=== PATIENT | male | born 1990 | race Caucasian/White ===

== ENCOUNTER → 2025-03-20 | Outpatient (CLI) | payer MEDICAID, SELFPAY ==
--- NOTE | 2025-03-20 14:50 | RAD_ITS ---
PROCEDURE: FOOT MIN 3 VIEWS 03/20/2025 REASON FOR EXAM: R/O FX OF LEFT FOOT TECHNIQUE: Procedure Code: RADFO Modality: DX Procedure: FOOT MIN 3 VIEWS COMPARISON: No relevant prior. FINDINGS: Several small ossicles are noted adjacent to the base of the 1st and 2nd metatarsals. No radiolucent fracture lines are identified. No dislocations or subluxations. Interphalangeal joints and metatarsophalangeal joints are unremarkable. Unremarkable soft tissues. RAD/Foot min 3 Views IMPRESSION: Ossicles adjacent to the heads of the 1st and 2nd metatarsal. These may be rel ated to old trauma. Correlation with point tenderness recommended. Reading Location: [place] [id number]
== END | disposition home or self-care (01) ==
LOC: RAD 14:39
PROVIDERS: Referring Provider Nurse Practitioner Family; Visit Provider Nurse Practitioner Family
DX: S93.602A Unspecified sprain of left foot, initial encounter (principal)
CPT/HCPCS: 73630